=== PATIENT | male | born 1955 | race Caucasian/White ===

== ENCOUNTER 2017-09-30 07:40 | Outpatient (CLI) | payer BC ==
--- NOTE | 2017-09-30 10:21 | MRI ---
MRI LUMBAR SPINE NONCONTRAST: HISTORY: Low back pain. Recent fall. FINDINGS: Radiographs are not available for direct correlation; therefore, the lowest lumbar type vertebrae derrick l be designated as L5, with the remainder numbered accordingly. The conus medullaris has a normal ap pearance. There is desiccation of all other intervertebral disks, with discogenic endplate changes a nd disk space narrowing at each level. T12-L1: Mild disk bulge and circumferential degenerative changes. Mild central canal and bilateral foraminal stenoses. L1-L2: Posterior disk bulge and circumferential degenerative changes. Moderate stenosis of the cent ral canal and each neural foramen. L2-L3: Minimal degenerative retrolisthesis. Posterior disk bulge and circumferential degenerative c hanges. Severe stenosis of the central canal. Moderate stenosis of each neural foramen. L3-L4: Posterior disk bulge. Circumferential degenerative changes. Severe central canal stenosis. Moderate right and severe left foraminal stenoses. L4-L5: Focal right posterior paracentral disk protrusion with severe compression of the right side o f the thecal sac and the right L5 nerve root origin. Severe stenosis of the central canal. Moderate bilateral foraminal stenoses, left worse than right. L5-S1: Diffuse posterior disk protrusion with severe stenosis of the central canal. Severe bilatera l foraminal stenoses. Images, including the retroperitoneum, show a large, cystic structure at the inferior pole, left kidn ey, with the appearance of an exophytic cyst. IMPRESSION: 1. Severe multilevel degenerative changes throughout the lumbar spine, including severe central dunia l and foraminal stenoses, as detailed above. 2. Focal right posterior paracentral disk protrusion at the L4-L5 level is also present, severely co mpressing the thecal sac and the right L5 nerve root origin. POS: [facility]
== END 2017-09-30 07:41 | disposition home or self-care (01) ==
LOC: TBSIIMAG 07:40
PROVIDERS: ATTEND Family Medicine
DX: M47.26 Other spondylosis with radiculopathy, lumbar region (principal); M47.894 Other spondylosis, thoracic region; M47.898 Other spondylosis, sacral and sacrococcygeal region; M48.05 Spinal stenosis, thoracolumbar region; M48.07 Spinal stenosis, lumbosacral region; M99.82 Other biomechanical lesions of thoracic region; M99.83 Other biomechanical lesions of lumbar region; M99.84 Other biomechanical lesions of sacral region
CPT/HCPCS: 72148

== ENCOUNTER 2018-01-30 16:28 | Outpatient (CLI) | payer BC ==
--- NOTE | 2018-02-02 11:54 | EKG ---
Test Reason : Blood Pressure : / mmHG Vent. Rate : 050 BPM Atrial Rate : 050 BPM P-R Int : 226 ms QRS Dur : 088 ms QT Int : 448 ms P-R-T Axes : 051 019 025 degrees QTc Int : 408 ms Sinus bradycardia with 1st degree A-V block Septal infarct , age undetermined cannot be excluded Abnormal ECG Confirmed by EDEN ESTRELLA ([id number]) on 02/02/2018 11:54:32 AM Referred By: PATEL Confirmed By:EDEN ESTRELLA
== END 2018-01-30 16:29 | disposition home or self-care (01) ==
LOC: LABBT 16:28
PROVIDERS: ATTEND Neurological Surgery
DX: Z01.818 Encounter for other preprocedural examination (principal); M48.07 Spinal stenosis, lumbosacral region
CPT/HCPCS: 93005; 93010

== ENCOUNTER 2018-02-06 05:41 | Day surgery (SDC) | payer BC ==
[2018-01-30 16:41] VITALS: BMI 35.7
--- NOTE | 2018-02-05 12:39 | HP ---
HISTORY OF PRESENT ILLNESS: Mr. Werner is a 62-year-old man presenting for evaluation of neurogenic cl audication symptoms as well as right lower extremity L5 pain. He has an MRI from [facility] revealing ferdinand re central canal stenosis at L4 through S1 secondary to spondylosis and epidural lipomatosis. In add ition to this, he also has a calcified disk to the right and lateral recess at L4 that would fit his symptoms. He has been treating this conservatively with exercises and chiropractics, but these sympt oms continue to persist. PAST MEDICAL HISTORY: Significant for hypercholesterolemia, hypertension. CURRENT MEDICATIONS: Hydrochlorothiazide, lisinopril, carvedilol, rosuvastatin. ALLERGIES: ADVIL and BENADRYL. PAST SURGICAL HISTORY: Bilateral knee replacements. PHYSICAL EXAMINATION: The patient is alert and oriented x3. Gait is mildly antalgic. Lower extremi ty motor exam is normal. He has positive straight leg raise on the right side. IMPRESSION: Lumbar stenosis with radiculopathy and neurogenic claudication symptoms. PLAN: Dr. Hernandez met with the patient, reviewed imaging and advocated for an L4 through S1 decompress ion and right L4 diskectomy. He explained to the patient the risks, benefits, and alternatives of th e procedure. The patient expressed understanding and would like to move forward with surgery as disc ussed. I do believe the patient is mentally competent and capable of making medical decisions for [facility] [place] and we will move forward with surgery as planned.
[2018-02-06] MEDS ORDERED: CEFAZOLIN 2 GM/50 ML BAG ONE ×2 (06:21→11:19)
[2018-02-06] MEDS ORDERED: Bupivacaine HCl 0.5%/Epinephrine 1:200,000/PF 30 ml Vial ONE (06:24)
[2018-02-06] MEDS ORDERED: Thrombin 5000 UNITS/5 ML VIAL ONE (06:24)
[2018-02-06 06:46] LABS: Anion Gap 13 mmol/L (10-20); BUN (Urea Nitrogen) 16 mg/dL (8.4-25.7); Calc. Creatinine Clearance 147 mL/min (70-130); Calcium 9.2 mg/dL (7.8-10.44); Carbon Dioxide 26 mmol/L (23-31); Chloride 105 mmol/L (98-107); Estimated GFR-MDRD Greater than 90; Glucose 108 mg/dL (80-115); Potassium 3.9 mmol/L (3.5-5.1); Sodium 140 mmol/L (136-145)
[2018-02-06] MEDS ORDERED: Midazolam HCl 2 mg/2 ml Vial ONE (06:49)
[2018-02-06] MEDS ORDERED: Fentanyl 100 MCG/2 ML VIAL ONE ×3 (07:01→10:16)
[2018-02-06] MEDS ORDERED: Tamsulosin HCl 0.4 MG CAP ONE (10:11)
--- NOTE | 2018-02-06 11:39 | OP ---
DATE OF PROCEDURE: 02/06/2018 SURGEON: Edouard Hernandez M.D. VENEER STOCK LAYER: Zachary Oliver PA-C INDICATION: Pain. DIAGNOSIS: Lumbar stenosis. PROCEDURE: L4 through S1 lumbar decompression. ANESTHESIA: General. TECHNIQUE: The patient was brought into the operating room and placed under general anesthesia. He was flipped from a supine to a prone position on the operating room table. A linear incision was santo nned over the L4-S1 segments. After prepping and draping and after an appropriate operative pause, t he incision was created. The soft tissues were swept away from midline. After confirming the approp riate level with C-arm fluoroscopy, an Adson rongeur as well as a high-speed cutting drill bit as wel l as 2, 3 and 4 mm Kerrisons were used to perform decompression at spanning the L4 segment and the L5 -S1 segment. The L4 and L5 disks were palpated and found to be calcified protuberances and compatibl e with safe resection. As such, a decompression alone was performed where the descending nerve roots were well decompressed. The wound was irrigated. Hemostasis was maintained throughout. The wound was then closed in anatomic layers and a pressure dressing was applied. There were no known procedur al complications.
[2018-02-06] MEDS ORDERED: HYDROcodone/Acetaminophen 5/325 mg Tablet ONE (12:01)
[2018-02-06] MEDS ORDERED: Lidocaine 1% PF 5 ML VIAL ONE (13:27)
[2018-02-06] MEDS ORDERED: Dexamethasone 20 MG/5 ML VIAL ONE (13:27)
[2018-02-06] MEDS ORDERED: Ondansetron PF 4 MG/2 ML Vial ONE (13:27)
[2018-02-06] MEDS ORDERED: Glycopyrrolate 0.2 MG/ML 5 ML SYRINGE ONE (13:27)
[2018-02-06] MEDS ORDERED: PROPOFOL 200 MG/20 ML VIAL ONE (13:27)
[2018-02-06] MEDS ORDERED: ePHEDrine/0.9% NaCl/PF SYRINGE 50 mg/10 ml ONE (13:27)
--- NOTE | 2018-02-10 05:21 | PQF ---
[facility] POST DISCHARGE CLINICAL DOCUMENTATION IMPROVEMENT CLARIFICATION FORM l Todays Date: 02/10/18 l Patients Name LANDON KLINE l l Admit Date 02/06/18 l Disch Date 02/06/18 Freelance Operator Name Darrion Quach Email: [email or web address] Cell: [phone] To be completed by Freelance Operator: Present Clinical Indicators - Signs / Symptoms Results and Location in Medical Record [ ] Documentation of: [ ] [ ] Documentation of: [ ] [ ] Documentation of: [ ] [ ] Documentation of: [ ] [ ] Risks [ ] [ ] [ ] Treatment [ ] L4-S1 LUMBAR DECOMPRESSION FOR LUMBAR STENOSIS Query for clarification of how lumbar decompression was done, If via: laminectomy, hemilaminectom, laminotomy, facetectomy, discectomy, etc. Kindly provide an addendum for the OP report [ ] [ ] To be completed by Physician: FREDA NGUYEN The documentation in this patients record requires clarification to ensure coding compliance and accuracy. Check the appropriate box and include in your discharge summary. [ ] [ ] [ ] [ ] Please check this box if this does not apply to this patient [ ] Unable to determine [ ] Other diagnosis: Review the following information and exercise your independent professional judgment in responding to the clarification. Based upon the clinical findings, risk factors, and treatment, please clarify if you are treating one of the above probable or suspected diagnoses. Physician Signature: Date Time MTDD
== END 2018-02-06 13:15 | disposition home or self-care (01) ==
LOC: SDC 05:41
PROVIDERS: ATTEND Neurological Surgery
DX: M48.062 Spinal stenosis, lumbar region with neurogenic claudication (principal); M47.26 Other spondylosis with radiculopathy, lumbar region; E78.00 Pure hypercholesterolemia, unspecified; I10 Essential (primary) hypertension; Z79.899 Other long term (current) drug therapy; Z88.8 Allergy status to other drugs, medicaments and biological substances; Z96.653 Presence of artificial knee joint, bilateral
CPT/HCPCS: 76001; 80048; 96374; J0131; J0670; J1100; J2001; J2250; J2405; J2704; J3010

== ENCOUNTER 2022-06-14 10:38 | Outpatient (CLI) | payer MEDICARE, OTHER ==
[2022-06-14 12:02] LABS: Hemoglobin 16.3 g/dL (13.5-17.5); Mean Corpuscular HGB CONC 31.8 g/dL (32.0-36.0); Mean Corpuscular Hemoglobin 28.2 pg (27.0-33.0); Mean Corpuscular Volume 88.4 fl (81.2-95.1); Platelet Count 175 10x3/uL (150-450); RBC Distribution Width 13.7 % (11.5-14.5); Red Blood Cell (RBC) Count 5.79 10x6/uL (4.32-5.72); White Blood Cell (WBC) Count 6.4 10x3/uL (3.5-10.5)
[2022-06-14 12:11] LABS: Anion Gap 16 mmol/L (10-20); BUN (Urea Nitrogen) 8 mg/dL (8.4-25.7); Calc. Creatinine Clearance 0 mL/min (70-130); Calcium 9.1 mg/dL (7.8-10.44); Carbon Dioxide 28 mmol/L (23-31); Chloride 101 mmol/L (98-107); Estimated GFR 86; Glucose 136 mg/dL (80-115); Potassium 4.2 mmol/L (3.5-5.1); Sodium 141 mmol/L (136-145)
== END 2022-06-14 10:39 | disposition home or self-care (01) ==
LOC: LABBT 10:38
PROVIDERS: ATTEND Neurological Surgery
DX: Z01.812 Encounter for preprocedural laboratory examination (principal); M47.812 Spondylosis without myelopathy or radiculopathy, cervical region
CPT/HCPCS: 80048; 85027

== ENCOUNTER 2022-06-19 06:18 | Day surgery (SDC) | payer MEDICARE, OTHER ==
[2022-06-18 13:05] VITALS: BMI 38.7
[2022-06-19] MEDS ORDERED: Thrombin 5000 UNITS/5 ML VIAL ONE (06:30)
[2022-06-19] MEDS ORDERED: fentaNYL PF 100 MCG/2 ML SYRINGE ONE (07:12)
[2022-06-19] MEDS ORDERED: Midazolam HCl 2 mg/2 ml Vial ONE (07:12)
[2022-06-19] MEDS ORDERED: CEFAZOLIN 2 GM VIAL ONE ×2 (07:27→13:28)
[2022-06-19] MEDS ORDERED: Sodium Chloride 0.9% 100 ML ONE ×2 (07:27→13:28)
[2022-06-19] MEDS ORDERED: Ondansetron PF 4 MG/2 ML Vial ONE (07:42)
[2022-06-19] MEDS ORDERED: PROPOFOL 200 MG/20 ML VIAL ONE (07:42)
[2022-06-19] MEDS ORDERED: ePHEDrine 50 MG/ML VIAL ONE (07:42)
[2022-06-19] MEDS ORDERED: Rocuronium Bromide 10 MG/ML (10ML VIAL) ONE (07:42)
[2022-06-19] MEDS ORDERED: Dexamethasone 20 MG/5 ML VIAL ONE (07:42)
[2022-06-19] MEDS ORDERED: Lidocaine 1% PF 5 ML VIAL ONE (07:42)
[2022-06-19] MEDS ORDERED: SUGAMMADEX SODIUM 200 MG/2 ML VIAL ONE (09:06)
[2022-06-19] MEDS ORDERED: FENTANYL 50 MCG/ML 1 ML VIAL ONE ×4 (09:39→10:53)
[2022-06-19] MEDS ORDERED: Tamsulosin HCl 0.4 MG CAP ONE (11:18)
[2022-06-19] MEDS ORDERED: HYDROcodone/Acetaminophen 5/325 mg Tablet ONE (11:38)
== END 2022-06-19 14:13 | disposition home or self-care (01) ==
LOC: SDC 06:18
PROVIDERS: ATTEND Neurological Surgery
PROC: 0RG10A0 Fusion of Cervical Vertebral Joint with Interbody Fusion Device, Anterior Approach, Anterior Column, Open Approach (ICD-10-PCS; principal; 2022-06-19)
DX: M47.12 Other spondylosis with myelopathy, cervical region (principal); M47.22 Other spondylosis with radiculopathy, cervical region; E78.5 Hyperlipidemia, unspecified; I10 Essential (primary) hypertension; Z79.82 Long term (current) use of aspirin; Z79.84 Long term (current) use of oral hypoglycemic drugs; Z79.899 Other long term (current) drug therapy; Z88.6 Allergy status to analgesic agent
CPT/HCPCS: 20930; 20936; 22551; 22845; 22853; C1713 ×4; C1889; J3010; J1100; J2250; J2405; J2704; J3490